=== PATIENT | female | born 1955 | race Caucasian/White ===

== ENCOUNTER 2021-06-02 21:27 | Emergency (ER) | payer MEDICARE, OTHER ==
[~2021-06-02] VITALS: Ht 142.2 cm; Wt 76.0 kg
[~2021-06-02 21:27] MED LIST: ACET-784 PO; BECL8.7A6 IH; BISA10S PR; DEXT1DRO OU; DIPH25 PO; FAMO20 PO; FE PR; FURO20TA4 PO; LOPE1LIQ PO; METO25 PO; MOM30 PO; MOME17N NS; MULT-660 PO; SLOWK8 PO; VENL-67 PO
[2021-06-02] MEDS ORDERED: 0.9% SODIUM CHLORIDE 10 ML SYRINGE IVP PRN (22:15)
[2021-06-02] MEDS ORDERED: AZITHROMYCIN 500 MG/NS 250 ML IV ONE (22:15)
[2021-06-02] MEDS ORDERED: ERGO50CA PO (22:15)
[2021-06-02] MEDS ORDERED: POTA-206 PO (22:15)
[2021-06-02] MEDS ORDERED: CefTRIAXone 1 GM/DEXTROSE 50 ML IV ONE (22:15)
[2021-06-02 22:54] LABS: BASOPHILS % (AUTO) 0.7 % (0.0-2.0); EOSINOPHILS % (AUTO) 1.7 % (1.0-6.0); HEMATOCRIT 44.7 % (36-46); HEMOGLOBIN 14.8 g/dL (12.0-16.0); LYMPHOCYTES # (AUTO) 2.5 K/uL (1.0-4.8); LYMPHOCYTES % (AUTO) 24.9 % (22.0-44.0); MEAN CORPUSCULAR HEMOGLOBIN 29.1 pg (26.0-34.0); MEAN CORPUSCULAR HGB CONC 33.2 G/dL (31.0-37.0); MEAN CORPUSCULAR VOLUME 88 fL (80-100); MONOCYTES # (AUTO) 0.6 K/uL (0.1-1.0); MONOCYTES % (AUTO) 5.9 % (2.0-9.0); NEUTROPHILS # (AUTO) 6.8 K/uL (1.8-7.7); NEUTROPHILS % (AUTO) 66.8 % (40.0-70.0); PLATELET COUNT (AUTO) 255 K/uL (150-450); RED CELL DISTRIBUTION WIDTH 13.5 % (11.5-14.5)
[2021-06-02 23:01] LABS: ANION GAP 7 mmol/L (8-16); CALCIUM, TOTAL 8.8 mg/dL (8.8-10.5); CARBON DIOXIDE 29 mmol/L (22-29); CHLORIDE 103 mmol/L (98-107); CREATININE 0.48 mg/dL (0.60-1.30); GLOMERULAR FILTR. RATE CALC > 60 mL/min (>60); GLUCOSE,RANDOM 130 mg/dL (70-110); POTASSIUM 3.4 mmol/L (3.5-5.1); SODIUM SERUM 139 mmol/L (136-145); UREA NITROGEN, BLOOD 13 mg/dL (7-18)
[2021-06-02 23:06] LABS: D-DIMER 0.33 mg/L FEU (0.00-0.50); PROTHROMBIN TIME 10.3 SEC (9.4-11.6)
[2021-06-02 23:07] LABS: ALANINE AMINOTRANSFERASE 26 U/L (12-78); ALBUMIN 3.3 g/dL (3.4-5.0); ALKALINE PHOSPHATASE 99 U/L (46-116); ASPARTATE AMINOTRANSFERASE 14 U/L (15-37); BILIRUBIN,TOTAL 0.4 mg/dL (0.1-1.0); CREATINE KINASE, TOTAL ONLY 14 U/L (26-192)
[2021-06-02 23:09] LABS: LACTIC ACID 1.3 mmol/L (0.4-2.0)
[2021-06-02 23:11] LABS: B-TYPE NATRIURETIC PEPTIDE 6 pg/mL (0-100)
[2021-06-02 23:27] LABS: COVID AG,FIA SOURCE NASOPHARYNGEAL
[2021-06-03] MEDS ORDERED: POTASSIUM CHLORIDE 20 MEQ ER TABLET PO ONE (00:15)
[2021-06-03] MEDS ORDERED: SODIUM CHLORIDE 0.9% 500 ML IV ONE (00:15)
[2021-06-03] MEDS ORDERED: DEXAMETHASONE SOD PHOS 4 MG/ML VIAL IVP ONE (00:15)
[2021-06-03 01:21] LABS: APPEARANCE,URINE CLOUDY (CLEAR); BILIRUBIN,URINE NEGATIVE (NEGATIVE); GLUCOSE, URINE (UA) NEGATIVE (NEGATIVE); KETONES,URINE NEGATIVE (NEGATIVE); LEUKOCYTE ESTERASE ,URINE NEGATIVE (NEGATIVE); NITRATE,URINE NEGATIVE (NEGATIVE); OCCULT BLOOD,URINE NEGATIVE (NEGATIVE); PROTEIN,URINE NEGATIVE (NEGATIVE)
[2021-06-03 02:50] VITALS: BP 171/93
== END 2021-06-03 02:55 | disposition home or self-care (01) ==
LOC: EMS 21:32
DX: J44.9 Chronic obstructive pulmonary disease, unspecified (principal); M79.89 Other specified soft tissue disorders; F41.9 Anxiety disorder, unspecified; F32.9 Major depressive disorder, single episode, unspecified; I10 Essential (primary) hypertension; Z20.822 Contact with and (suspected) exposure to COVID-19; Z90.710 Acquired absence of both cervix and uterus
CPT/HCPCS: 36415; 71045; 80053; 81003; 82550; 83605; 83880; 84484; 85025; 85379; 85610; 87040; 87426; 93005; 96361; 96365; 96368; 96375; 99285; J0456; J0696; J1100; J7030

== ENCOUNTER 2021-09-08 15:57 | Emergency (ER) | payer MEDICARE, OTHER ==
[~2021-09-08] VITALS: Ht 152.4 cm; Wt 81.8 kg
[~2021-09-08 15:57] MED LIST changes: -BECL8.7A6 IH; -BISA10S PR; -DEXT1DRO OU; -DIPH25 PO; +ERGO50CA PO; -FE PR; -MOM30 PO; -MOME17N NS; -MULT-660 PO; +POTA-206 PO; -SLOWK8 PO; -VENL-67 PO
[2021-09-08] MEDS ORDERED: SODIUM CHLORIDE 0.9% 1,000 ML IV ONE (16:30)
[2021-09-08] MEDS ORDERED: DIPHENOXYLATE/ATROP 2.5-0.025 MG TABLET PO ONE (16:30)
[2021-09-08] MEDS ORDERED: ONDANSETRON HCL 4 MG/2 ML VIAL IVP ONE (16:30)
[2021-09-08 16:53] LABS: BASOPHILS % (AUTO) 0.8 % (0.0-2.0); EOSINOPHILS % (AUTO) 4.6 % (1.0-6.0); HEMATOCRIT 43.1 % (36-46); HEMOGLOBIN 14.6 g/dL (12.0-16.0); LYMPHOCYTES # (AUTO) 2.5 K/uL (1.0-4.8); LYMPHOCYTES % (AUTO) 30.6 % (22.0-44.0); MEAN CORPUSCULAR HGB CONC 33.8 G/dL (31.0-37.0); MEAN CORPUSCULAR VOLUME 86 fL (80-100); MONOCYTES # (AUTO) 0.4 K/uL (0.1-1.0); MONOCYTES % (AUTO) 5.1 % (2.0-9.0); NEUTROPHILS # (AUTO) 4.7 K/uL (1.8-7.7); NEUTROPHILS % (AUTO) 58.9 % (40.0-70.0); PLATELET COUNT (AUTO) 237 K/uL (150-450); RED BLOOD CELL COUNT(AUTO) 5.02 MIL/uL (4.00-5.20); RED CELL DISTRIBUTION WIDTH 13.7 % (11.5-14.5)
[2021-09-08 16:56] LABS: COVID AG,FIA SOURCE NASOPHARYNGEAL
[2021-09-08 17:02] LABS: ANION GAP 6 mmol/L (8-16); CALCIUM, TOTAL 8.6 mg/dL (8.8-10.5); CARBON DIOXIDE 32 mmol/L (22-29); CHLORIDE 101 mmol/L (98-107); CREATININE 0.44 mg/dL (0.60-1.30); GLOMERULAR FILTR. RATE CALC > 60 mL/min (>60); GLUCOSE,RANDOM 94 mg/dL (70-110); POTASSIUM 3.5 mmol/L (3.5-5.1); SODIUM SERUM 139 mmol/L (136-145); UREA NITROGEN, BLOOD 10 mg/dL (7-18)
[2021-09-08 17:07] LABS: ALANINE AMINOTRANSFERASE 21 U/L (12-78); ALBUMIN 3.3 g/dL (3.4-5.0); ALKALINE PHOSPHATASE 105 U/L (46-116); ASPARTATE AMINOTRANSFERASE 18 U/L (15-37); BILIRUBIN,TOTAL 0.4 mg/dL (0.1-1.0); LIPASE 66 U/L (73-393); TOTAL PROTEIN, SERUM 6.9 g/dL (6.4-8.2)
[2021-09-08] MEDS ORDERED: IOHEXOL 350 MG/ML 100 ML VIAL ONE (18:27)
[2021-09-08] MEDS ORDERED: SODIUM CHLORIDE 0.9% 100 ML ONE (18:27)
[2021-09-08] MEDS ORDERED: POLY238P PO (21:25)
[2021-09-08 22:30] VITALS: BP 133/66
== END 2021-09-08 22:30 | disposition home or self-care (01) ==
LOC: EMS 16:30
DX: K52.9 Noninfective gastroenteritis and colitis, unspecified (principal); G80.9 Cerebral palsy, unspecified; I10 Essential (primary) hypertension; F32.9 Major depressive disorder, single episode, unspecified; F41.9 Anxiety disorder, unspecified; Z79.899 Other long term (current) drug therapy; Z20.822 Contact with and (suspected) exposure to COVID-19
CPT/HCPCS: 36415; 71045; 74177; 80053; 83690; 84484; 85025; 87426; 93005; 96361; 96374; 99285; J2405; J7050; Q9967

== ENCOUNTER 2022-02-06 14:56 | Emergency (ER) | payer MEDICARE, OTHER ==
[~2022-02-06] VITALS: Ht 152.4 cm; Wt 81.8 kg
[~2022-02-06 14:56] MED LIST changes: +POLY238P PO
[2022-02-06] MEDS ORDERED: ONDANSETRON HCL 4 MG/2 ML VIAL IVP ONE (17:45)
[2022-02-06] MEDS ORDERED: MORPHINE SULFATE 2 MG/ML SYRINGE IVP ONE (17:45)
[2022-02-06] MEDS ORDERED: SODIUM CHLORIDE 0.9% 1,000 ML IV ONE (17:45)
[2022-02-06] MEDS ORDERED: LOPE-202 PO (17:50)
[2022-02-06] MEDS ORDERED: CHOL25TA4 PO (17:50)
[2022-02-06] MEDS ORDERED: FURO20 PO (17:50)
[2022-02-06 17:59] LABS: BASOPHILS % (AUTO) 0.7 % (0.0-2.0); EOSINOPHILS % (AUTO) 3.2 % (1.0-6.0); HEMATOCRIT 43.1 % (36-46); HEMOGLOBIN 14.3 g/dL (12.0-16.0); LYMPHOCYTES # (AUTO) 2.1 K/uL (1.0-4.8); LYMPHOCYTES % (AUTO) 28.5 % (22.0-44.0); MEAN CORPUSCULAR HEMOGLOBIN 28.8 pg (26.0-34.0); MEAN CORPUSCULAR HGB CONC 33.3 G/dL (31.0-37.0); MEAN CORPUSCULAR VOLUME 87 fL (80-100); MONOCYTES # (AUTO) 0.3 K/uL (0.1-1.0); MONOCYTES % (AUTO) 4.7 % (2.0-9.0); NEUTROPHILS # (AUTO) 4.6 K/uL (1.8-7.7); NEUTROPHILS % (AUTO) 62.9 % (40.0-70.0); PLATELET COUNT (AUTO) 216 K/uL (150-450); RED BLOOD CELL COUNT(AUTO) 4.98 MIL/uL (4.00-5.20); RED CELL DISTRIBUTION WIDTH 13.4 % (11.5-14.5)
[2022-02-06 18:07] LABS: ANION GAP 4 mmol/L (8-16); CALCIUM, TOTAL 8.8 mg/dL (8.8-10.5); CARBON DIOXIDE 31 mmol/L (22-29); CHLORIDE 103 mmol/L (98-107); CREATININE 0.39 mg/dL (0.60-1.30); GLUCOSE,RANDOM 89 mg/dL (70-110); POTASSIUM 3.6 mmol/L (3.5-5.1); SODIUM SERUM 138 mmol/L (136-145); UREA NITROGEN, BLOOD 12 mg/dL (7-18)
[2022-02-06 18:12] LABS: GLOMERULAR FILTR. RATE CALC > 60 mL/min (>60)
[2022-02-06 18:13] LABS: ALANINE AMINOTRANSFERASE 18 U/L (12-78); ALBUMIN 3.2 g/dL (3.4-5.0); ALKALINE PHOSPHATASE 103 U/L (46-116); ASPARTATE AMINOTRANSFERASE 15 U/L (15-37); BILIRUBIN,TOTAL 0.7 mg/dL (0.1-1.0); LIPASE 55 U/L (73-393); TOTAL PROTEIN, SERUM 6.5 g/dL (6.4-8.2)
[2022-02-06 19:00] VITALS: BP 158/84
== END 2022-02-06 20:59 | disposition home or self-care (01) ==
LOC: EMS 14:59
DX: R10.13 Epigastric pain (principal); R19.7 Diarrhea, unspecified; I10 Essential (primary) hypertension; F41.9 Anxiety disorder, unspecified; F32.9 Major depressive disorder, single episode, unspecified; Z79.899 Other long term (current) drug therapy
CPT/HCPCS: 99285; 74176; 96374; 71045; 96361; 96375; 80053; 83690; 84484; 85025; 36415; 93005; J2270; J2405; J7030

== ENCOUNTER 2024-11-15 15:00 | Inpatient (IN) | payer MEDICARE, OTHER ==
[~2024-11-15] VITALS: Ht 142.2 cm; Wt 61.4 kg
[~2024-11-15 15:00] MED LIST changes: +ACET-2247 PO; -ACET-784 PO; +ASPI-1450 PO; +BISA10SU11 PR; +CHOL25TA4 PO; +CLON1PAT14 TD; -ERGO50CA PO; -FAMO20 PO; +FOLI-130 PO; -FURO20TA4 PO; +FURO20TA5 PO; +HEPA500018 SQ; -LOPE1LIQ PO; +MERO1VIA27 IV; +MULT-1366 PO; +PANT40TA54 PO; -POLY238P PO; -POTA-206 PO; +QUET25TA36 PO
[2024-11-15] MEDS ORDERED: METO50 PO (17:59)
[2024-11-15 18:10] LABS: BASOPHILS % (AUTO) 0.7 % (0.0-2.0); EOSINOPHILS % (AUTO) 1.1 % (1.0-6.0); HEMATOCRIT 44.3 % (36-46); HEMOGLOBIN 14.9 g/dL (12.0-16.0); LYMPHOCYTES # (AUTO) 1.3 K/uL (1.0-4.8); LYMPHOCYTES % (AUTO) 18.8 % (22.0-44.0); MEAN CORPUSCULAR HEMOGLOBIN 30.1 pg (26.0-34.0); MEAN CORPUSCULAR HGB CONC 33.5 G/dL (31.0-37.0); MEAN CORPUSCULAR VOLUME 90 fL (80-100); MONOCYTES # (AUTO) 0.6 K/uL (0.1-1.0); MONOCYTES % (AUTO) 8.6 % (2.0-9.0); NEUTROPHILS # (AUTO) 4.8 K/uL (1.8-7.7); NEUTROPHILS % (AUTO) 70.8 % (40.0-70.0); PLATELET COUNT (AUTO) 211 K/uL (150-450); RED BLOOD CELL COUNT(AUTO) 4.94 MIL/uL (4.00-5.20); RED CELL DISTRIBUTION WIDTH 13.4 % (11.5-14.5); WHITE BLOOD COUNT (AUTO) 6.7 K/uL (4.5-11.0)
[2024-11-15 18:28] LABS: LACTIC ACID 0.8 mmol/L (0.4-2.0)
[2024-11-15 18:31] LABS: ANION GAP 11 mmol/L (8-16); CARBON DIOXIDE 26 mmol/L (22-29); CHLORIDE 96 mmol/L (98-107); CREATININE 0.29 mg/dL (0.60-1.30); GLOMERULAR FILTR. RATE CALC > 60 mL/min (>60); GLUCOSE,RANDOM 125 mg/dL (70-110); POTASSIUM 3.4 mmol/L (3.5-5.1); SODIUM SERUM 133 mmol/L (136-145); UREA NITROGEN, BLOOD 9 mg/dL (7-18)
[2024-11-15 18:34] LABS: ALCOHOL, BLOOD (SERUM) < 3 mg/dL (0-10)
[2024-11-15] MEDS: MAGNESIUM SULFATE 2 GM, MVI, ADULT NO.1 WITH VIT K 10 ML, THIAMINE 100 MG, FOLIC ACID 1... IV ONE (18:41)
[2024-11-15 20:34] LABS: COVID AG,FIA SOURCE NASAL SWAB
[2024-11-15 20:53] LABS: SARS-COV2 (COVID) ANTIGEN,FIA Negative (Negative)
[2024-11-15 22:15] LABS: ALBUMIN 3.1 g/dL (3.4-5.0); BILIRUBIN,DIRECT 0.3 mg/dL (0.00-0.20); BILIRUBIN,TOTAL 0.7 mg/dL (0.1-1.0); TOTAL PROTEIN, SERUM 6.6 g/dL (6.4-8.2)
[2024-11-15] MEDS ORDERED: ACETAMINOPHEN 325 MG TABLET PO PRN (22:45)
[2024-11-15] MEDS ORDERED: ONDANSETRON HCL 4 MG/2 ML VIAL IVP PRN (22:45)
[2024-11-15] MEDS: SODIUM CHLORIDE 0.9% 1,000 ML IV ONE (22:53)
[2024-11-15] MEDS: HEPARIN SODIUM,PORCINE 5,000 UNITS/ML VIAL SQ SCH (23:34)
[2024-11-16 01:00] VITALS: BP 167/81; PULSE 68; RESP 19; TEMP 98.6; O2SAT 96
[2024-11-16 04:00] VITALS: BP 156/77; PULSE 73; RESP 18; TEMP 97.7; O2SAT 95
[2024-11-16 06:45] LABS: BASOPHILS % (AUTO) 0.4 % (0.0-2.0); EOSINOPHILS % (AUTO) 1.1 % (1.0-6.0); HEMATOCRIT 42.3 % (36-46); HEMOGLOBIN 14.6 g/dL (12.0-16.0); LYMPHOCYTES # (AUTO) 1.6 K/uL (1.0-4.8); LYMPHOCYTES % (AUTO) 19.4 % (22.0-44.0); MEAN CORPUSCULAR HEMOGLOBIN 30.6 pg (26.0-34.0); MEAN CORPUSCULAR HGB CONC 34.6 G/dL (31.0-37.0); MEAN CORPUSCULAR VOLUME 89 fL (80-100); MONOCYTES # (AUTO) 0.6 K/uL (0.1-1.0); MONOCYTES % (AUTO) 7.6 % (2.0-9.0); NEUTROPHILS # (AUTO) 5.9 K/uL (1.8-7.7); NEUTROPHILS % (AUTO) 71.5 % (40.0-70.0); PLATELET COUNT (AUTO) 216 K/uL (150-450); RED BLOOD CELL COUNT(AUTO) 4.77 MIL/uL (4.00-5.20); RED CELL DISTRIBUTION WIDTH 13.4 % (11.5-14.5); WHITE BLOOD COUNT (AUTO) 8.2 K/uL (4.5-11.0)
[2024-11-16 06:52] LABS: ANION GAP 11 mmol/L (8-16); CALCIUM, TOTAL 8.3 mg/dL (8.8-10.5); CARBON DIOXIDE 26 mmol/L (22-29); CHLORIDE 102 mmol/L (98-107); CREATININE 0.24 mg/dL (0.60-1.30); GLOMERULAR FILTR. RATE CALC > 60 mL/min (>60); GLUCOSE,RANDOM 87 mg/dL (70-110); POTASSIUM 3.2 mmol/L (3.5-5.1); SODIUM SERUM 139 mmol/L (136-145); UREA NITROGEN, BLOOD 5 mg/dL (7-18)
[2024-11-16 08:00] VITALS: BP 142/57; PULSE 57; RESP 18; TEMP 97.8; O2SAT 96
[2024-11-16 12:00] VITALS: BP 134/60; PULSE 56; RESP 20; TEMP 97.5; O2SAT 97
[2024-11-16] MEDS: 1: MAGNESIUM SULFATE 2 GM, MVI, ADULT NO.1 WITH VIT K 10 ML, THIAMINE 100 MG, FOLIC ACID IV SCH (12:51)
[2024-11-16] MEDS: MORPHINE SULFATE 2 MG/ML SYRINGE IVP PRN (13:00)
[2024-11-16] MEDS ORDERED: SODIUM CHLORIDE 0.9% 100 ML ONE (15:59)
[2024-11-16] MEDS ORDERED: IOHEXOL 350 MG/ML 100 ML VIAL ONE (15:59)
[2024-11-16 16:00] VITALS: BP 140/55; PULSE 59; RESP 18; TEMP 98; O2SAT 96
[2024-11-16] MEDS ORDERED: SODIUM CHLORIDE 0.9% 1,000 ML IV ONE (17:39)
[2024-11-16] MEDS: POTASSIUM CHL 10 MEQ/WATER 50 ML IV PRN (17:43)
[2024-11-16 20:39] VITALS: BP 155/60; PULSE 60; RESP 18; TEMP 98.7; O2SAT 99
[2024-11-17 00:28] VITALS: BP 129/90; PULSE 85; RESP 18; TEMP 98.5; O2SAT 99
[2024-11-17] MEDS ORDERED: SODIUM CHLORIDE 0.9% 1,000 ML ONE (01:56)
[2024-11-17 03:55] VITALS: BP 158/65; PULSE 80; RESP 18; TEMP 98.2; O2SAT 99
[2024-11-17] MEDS: ETHYL ALCOHOL 62% ANTISEPTIC NASAL SANITIZER 0.6 ML AMPUL NASAL SCH (09:01)
[2024-11-17 09:48] LABS: BASOPHILS % (AUTO) 0.8 % (0.0-2.0); EOSINOPHILS % (AUTO) 1.3 % (1.0-6.0); HEMATOCRIT 42.8 % (36-46); HEMOGLOBIN 14.5 g/dL (12.0-16.0); LYMPHOCYTES # (AUTO) 1.7 K/uL (1.0-4.8); LYMPHOCYTES % (AUTO) 18.1 % (22.0-44.0); MEAN CORPUSCULAR HEMOGLOBIN 30.4 pg (26.0-34.0); MEAN CORPUSCULAR VOLUME 89 fL (80-100); MONOCYTES # (AUTO) 0.6 K/uL (0.1-1.0); MONOCYTES % (AUTO) 6.3 % (2.0-9.0); NEUTROPHILS % (AUTO) 73.5 % (40.0-70.0); PLATELET COUNT (AUTO) 212 K/uL (150-450); RED BLOOD CELL COUNT(AUTO) 4.78 MIL/uL (4.00-5.20); RED CELL DISTRIBUTION WIDTH 13.5 % (11.5-14.5); WHITE BLOOD COUNT (AUTO) 9.5 K/uL (4.5-11.0)
[2024-11-17 10:04] LABS: ALANINE AMINOTRANSFERASE 18 U/L (12-78); ALBUMIN 2.8 g/dL (3.4-5.0); ALKALINE PHOSPHATASE 94 U/L (46-116); ANION GAP 12 mmol/L (8-16); ASPARTATE AMINOTRANSFERASE 14 U/L (15-37); BILIRUBIN,TOTAL 0.8 mg/dL (0.1-1.0); CALCIUM, TOTAL 8.4 mg/dL (8.8-10.5); CARBON DIOXIDE 23 mmol/L (22-29); CHLORIDE 102 mmol/L (98-107); CREATININE 0.28 mg/dL (0.60-1.30); GLOMERULAR FILTR. RATE CALC > 60 mL/min (>60); GLUCOSE,RANDOM 75 mg/dL (70-110); POTASSIUM 3.4 mmol/L (3.5-5.1); SODIUM SERUM 137 mmol/L (136-145); TOTAL PROTEIN, SERUM 6.1 g/dL (6.4-8.2); UREA NITROGEN, BLOOD 6 mg/dL (7-18)
[2024-11-17 11:57] VITALS: BP 159/85; PULSE 74; RESP 18; TEMP 98.4; O2SAT 97
[2024-11-17 16:40] VITALS: BP 159/84; PULSE 80; RESP 19; TEMP 98.1; O2SAT 96
[2024-11-17] MEDS: LACTULOSE 200 GM/300 ML RECTAL SOLUTION PR ONE (17:23)
[2024-11-17 20:29] VITALS: BP 155/80; PULSE 79; RESP 18; TEMP 97.9; O2SAT 98
[2024-11-17 23:58] VITALS: BP 158/81; PULSE 80; RESP 18; TEMP 98.2; O2SAT 97
[2024-11-18 03:58] VITALS: BP 159/80; PULSE 85; RESP 19; TEMP 98.3; O2SAT 98
[2024-11-18 07:50] VITALS: BP 156/62; PULSE 89; RESP 18; TEMP 97.5; O2SAT 98
[2024-11-18] MEDS ORDERED: DOCU-385 PO (11:19)
[2024-11-18] MEDS ORDERED: NA P133E8 PR (11:19)
[2024-11-18] MEDS ORDERED: MAGN-169 PO (11:21)
[2024-11-18] MEDS ORDERED: ONDA-104 PO (11:21)
[2024-11-18] MEDS ORDERED: SODIUM PHOSPHATE,MONO-DIBASIC 133 ML ENEMA PR PRN (11:45)
[2024-11-18] MEDS ORDERED: BISACODYL 10 MG RECTAL RECTAL SUPPOSITORY PR PRN (11:45)
[2024-11-18] MEDS ORDERED: ONDANSETRON 4 MG TABLET PO PRN (11:45)
[2024-11-18] MEDS ORDERED: ACETAMINOPHEN 325 MG TABLET PO PRN (11:45)
[2024-11-18] MEDS ORDERED: MAGNESIUM HYDROXIDE SUSPENSION 30 ML UDCUP PO PRN (11:45)
[2024-11-18] MEDS ORDERED: DOCUSATE SODIUM 100 MG CAPSULE PO PRN (11:45)
[2024-11-18] MEDS: CloNIDine 0.3 MG/24 HOUR PATCH TD SCH (12:00)
[2024-11-18] MEDS ORDERED: HEPARIN SODIUM,PORCINE 5,000 UNITS/ML VIAL SQ SCH (16:00)
[2024-11-18] MEDS: QUEtiapine FUMARATE 25 MG TABLET PO SCH (21:02)
[2024-11-18] MEDS: METOPROLOL TARTRATE 50 MG TABLET PO SCH (21:02)
[2024-11-18] MEDS: POTASSIUM CHLORIDE 20 MEQ ER TABLET PO PRN (21:02)
[2024-11-18 21:04] VITALS: BP 141/69; PULSE 93; RESP 19; TEMP 98.2; O2SAT 95
[2024-11-18 23:22] VITALS: BP 156/85; PULSE 81; RESP 20; TEMP 98; O2SAT 98
[2024-11-19 03:10] VITALS: BP 119/68; PULSE 64; RESP 18; TEMP 97.7; O2SAT 95
[2024-11-19 08:25] VITALS: BP 129/53; PULSE 63; RESP 18; TEMP 97.9; O2SAT 95
[2024-11-19] MEDS: MULTIVITAMINS, THERAPEUTIC TABLET PO SCH (08:39)
[2024-11-19] MEDS: FUROSEMIDE 20 MG TABLET PO SCH (08:39)
[2024-11-19] MEDS: ASPIRIN 81 MG CHEWABLE TABLET PO SCH (08:39)
[2024-11-19] MEDS: CHOLECALCIFEROL (VIT D3) 1,000 UNITS [25 MCG] TABLET PO SCH (08:39)
[2024-11-19] MEDS: FOLIC ACID 1 MG TABLET PO SCH (08:39)
[2024-11-19] MEDS: PANTOPRAZOLE SODIUM 40 MG DR TABLET PO SCH (08:39)
[2024-11-19 11:41] VITALS: BP 126/68; PULSE 97; RESP 17; TEMP 98.4; O2SAT 98
[2024-11-19 16:30] VITALS: BP 131/71; PULSE 95; RESP 19; TEMP 97.9; O2SAT 98
== END 2024-11-19 17:50 | DRG 444 ==
LOC: EMS 15:26 → EDH 22:38 → 5S 11-16 01:01
PROVIDERS: ADMIT Internal Medicine; ATTEND Internal Medicine
PROC: GZ56ZZZ Individual Psychotherapy, Supportive (ICD-10-PCS; principal; 2024-11-18)
DX: K83.09 Other cholangitis (principal); E43 Unspecified severe protein-calorie malnutrition; G93.41 Metabolic encephalopathy; R62.7 Adult failure to thrive; E87.6 Hypokalemia; F20.9 Schizophrenia, unspecified; Z20.822 Contact with and (suspected) exposure to COVID-19; G80.9 Cerebral palsy, unspecified; F31.9 Bipolar disorder, unspecified; F41.9 Anxiety disorder, unspecified; I10 Essential (primary) hypertension; K21.9 Gastro-esophageal reflux disease without esophagitis; Z91.199 Patient's noncompliance with other medical treatment and regimen due to unspecified reason; Z90.710 Acquired absence of both cervix and uterus; Z90.49 Acquired absence of other specified parts of digestive tract; Z68.30 Body mass index [BMI] 30.0-30.9, adult; F79 Unspecified intellectual disabilities
CPT/HCPCS: 74177; 76705; 80048; 80053; 80076; 83605; 83690; 83735; 84132; 85025; 87081; 99285; G0378; G0480; J1644; J2270; J3411; J3475; J3480; J3490; J7030; J7040; J7050